=== PATIENT | female | born 1995 | race Caucasian/White ===

== ENCOUNTER → 2020-05-28 | Outpatient (CLI) | payer OTHER ==
[2020-05-28 15:59] LABS: BASO % 0.3 % (0.0-1.0); EOS # 0.1 10^3/uL (0.0-0.5); EOS % 1.6 % (0.0-3.0); HEMATOCRIT 36.3 % (36.0-47.0); HEMOGLOBIN 11.3 g/dl (12.0-15.5); LYMPH # 1.9 10^3/uL (1.5-5.0); LYMPH % 23.4 % (24.0-44.0); MEAN CORPUSCULAR HEMOGLOBIN 25.7 pg (27.0-33.0); MEAN CORPUSCULAR HGB CONC 31.1 g/dl (32.0-36.5); MEAN CORPUSCULAR VOLUME 82.5 fl (80.0-96.0); MONO # 0.3 10^3/uL (0.0-0.8); MONO % 3.4 % (0.0-5.0); NEUTROPHILS # 5.6 10^3/uL (1.5-8.5); NEUTROPHILS % 70.9 % (36.0-66.0); PLATELET COUNT, AUTOMATED 265 10^3/uL (150-450); WHITE BLOOD COUNT 7.9 10^3/uL (4.0-10.0)
[2020-05-28 17:25] LABS: GLUCOSE CHALLENGE TEST 1 HOUR 161 MG/DL (LESS THAN 140)
[2020-05-28 18:32] LABS: HEPATITIS C VIRUS ABY INDEX 0.2 INDEX (<0.8); HIV 1&2 SCREEN CENTAUR NEGATIVE (NEGATIVE)
[2020-05-28 20:00] LABS: CHLAMYDIA DNA AMPLIFICATION NEGATIVE (NEGATIVE); GC DNA AMPLIFICATION NEGATIVE (NEGATIVE)
== END ==
LOC: M PLALAB 12:19
PROVIDERS: ATTEND Advanced Practice Midwife
DX: Z34.80 Encounter for supervision of other normal pregnancy, unspecified trimester (principal); Z3A.00 Weeks of gestation of pregnancy not specified

== ENCOUNTER → 2020-05-29 | Outpatient (CLI) | payer OTHER ==
--- NOTE | 2020-06-22 10:06 | REP ---
COMPLETE OBSTETRIC ULTRASOUND: 05/29/20 CLINICAL: Anatomical assessment TECHNIQUE: Transabdominal obstetrical ultrasound with color Doppler evaluation. FINDINGS: Ultrasound examination demonstrates single live intrauterine in variable presentation. motion was identified by technologist. The placenta is noted posterior/left lateral and grade 1 without previa or abruption. Cervix measures 3.6cm in length and appears closed. Amniotic fluid volume is normal. HEART RATE: 165bpm BPD: 66mm; 26 weeks 6 days HC: 239mm; 26 weeks 0 days AC: 228mm; 27 weeks 2 days FL: 48mm; 26 weeks 2 days HL: 45mm; 26 weeks 4 days Estimated age by current measurements 26 weeks 5 days. Estimated weight 970g (31st percentile). Anatomical assessment demonstrates normal cisterna magna, cavum, thalamus, stomach, kidneys/bladder, three vessel cord/cord insertion, facial features and extremities. Limited evaluation of the heart and cardiac outflow tracts noted. IMPRESSION: 1. Single live intrauterine in variable presentation demonstrating appropriate interval growth and estimated weight. 2. Anatomical assessment demonstrates limited heart and cardiac ventricle outflow tract which may warrant follow-up. Remainder of the anatomical assessment is complete and normal. MTDD
== END ==
LOC: M WHC 14:56 → EDUNIT# 15:00
PROVIDERS: ATTEND Obstetrics & Gynecology
DX: Z34.82 Encounter for supervision of other normal pregnancy, second trimester (principal)

== ENCOUNTER → 2020-07-07 | Outpatient (REF) | payer OTHER | LOC: M SFHCWAGY 17:08 | PROVIDERS: ATTEND Advanced Practice Midwife | DX: Z34.83 Encounter for supervision of other normal pregnancy, third trimester (principal); Z3A.00 Weeks of gestation of pregnancy not specified ==

== ENCOUNTER → 2020-07-23 | Outpatient (REF) | payer OTHER ==
[~2020-07-23] MED LIST: PRENTAB9 PO
== END ==
LOC: M SFHCWAGY 13:08
PROVIDERS: ATTEND Advanced Practice Midwife
DX: N39.46 Mixed incontinence (principal)
CPT/HCPCS: 87086; 87210; G0463

== ENCOUNTER → 2020-07-30 | Outpatient (CLI) | payer OTHER ==
--- NOTE | 2020-07-30 15:44 | REP ---
INDICATION: F/U ANATOMY. COMPARISON: 05/29/2020. TECHNIQUE: Real-time sonographic evaluation of the gravid uterus performed. FINDINGS: Estimated gestational age is35 weeks 5 days, EDC 08/29/2020. Today's measurements indicate appropriate growth. Presentation: Cephalic Placenta posterior, grade 2, without evidence of placenta previa. heart rate is recorded at 147 beats per minute. Amniotic fluid is subjectively normal. OTTO 17.4 (normal 7.8-24.9 ). Closed cervical length is measured at 3.1 cm. Biometry chart: BPD: 87 mm, 35 weeks 1 days, 41st percentile. HC: 319 mm, 35 weeks 6 days, 52nd percentile AC: 310 mm, 35 weeks 0 days, 39th percentile Femur length: 68 mm, 34 weeks 5 days, 36th percentile HC to AC ratio: 1.03, normal range 0.93-1.12. Estimated weight: 2572g, 31st percentile. There is an echogenic focus in the left ventricle of the heart likely related to chordae tendineae. The ventricular outflow tracts are visualized and are grossly unremarkable. IMPRESSION: Viable single intrauterine gestation as above. <Electronically signed by Migue Fuentes > 07/30/20 [id number]
== END ==
LOC: M WHC 14:17
PROVIDERS: ATTEND Advanced Practice Midwife
DX: O99.891 Other specified diseases and conditions complicating pregnancy (principal); Z3A.35 35 weeks gestation of pregnancy

== ENCOUNTER → 2020-08-10 | Outpatient (CLI) | payer OTHER ==
--- NOTE | 2020-08-11 04:16 | REP ---
INDICATION: IMPAIRED GLUCOSE,GROWTH,EFW,OTTO COMPARISON: 07/30/2020 TECHNIQUE: Transabdominal obstetrical ultrasound with color Doppler evaluation. FINDINGS: Examination demonstrates a single live intrauterine in cephalic presentation. motion is identified by technologist. Placenta is noted posterior and grade 2 without evidence for placenta previa or abruption. Amniotic fluid volume is normal. Cervix measures 3.7 cm in length and appears closed.. Gestational age by LMP 37 weeks 2 days with FEROZ 08/29/2020. Gestational age by current measurements 36 weeks 2 days with FEROZ 09/05/2020. FHR equals 135 beats per minute. BPD: 8.9 cm 36 weeks 1 day HC: 32.7 cm 37 weeks 1 day AC: 34.9 cm 38 weeks 6 days FL: 6.9 cm 35 weeks 1 day HL: 5.9 cm 34 weeks 1 day HC/AC: 0.94 Estimated weight 3221 grams (63rdpercentile). OTTO: 19.5 cm (7.4-24.3) IMPRESSION: Single live advanced gestation in cephalic presentation demonstrating appropriate estimated weight. <Electronically signed by Gómez Walker > 08/11/20 [id number]
== END ==
LOC: M WHC 12:21
PROVIDERS: ATTEND Advanced Practice Midwife
DX: O99.810 Abnormal glucose complicating pregnancy (principal); Z3A.36 36 weeks gestation of pregnancy
CPT/HCPCS: 76815; 87081; G0463

== ENCOUNTER → 2020-08-10 | Outpatient (REF) | payer OTHER | LOC: M SFHCWAGY 13:16 | PROVIDERS: ATTEND Advanced Practice Midwife | DX: O99.810 Abnormal glucose complicating pregnancy (principal) ==

== ENCOUNTER 2020-08-11 17:56 | Outpatient (CLI) | payer OTHER ==
[~2020-08-11] VITALS: Ht 165.1 cm; Wt 88.9 kg
[2020-08-11 18:11] VITALS: BP 121/62
[2020-08-11] MEDS ORDERED: PRENTAB9 PO (18:19)
[2020-08-11 19:18] VITALS: BP 114/74
--- NOTE | 2020-08-11 19:29 | IPNPDOC ---
Obstetrical Progress Note Date of Service Aug 11, 2020 Subjective 25 yo at 37+3 weeks EGA. Presents for a labor check. Reports frequent, painful uterine contractions. No loss of fluid or vaginal bleeding. Reports regular, frequent movement. ROS: No WEST, visual changes, RUQ pain, sob, cp, n/v/f/c. Cervix checked earlier today in the office and she was 2cm dilated. 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 EFM: Cat I / Reactive [place]: contraction pattern not detected; palpated as mild. A/P: 25 yo at 37+3 weeks EGA. Latent labor; no evidence of active labor or ROM. Reassuring maternal and status. -Routine third trimester precautions given. -Follow up in office as scheduled. Alex Banda DO FACOG. Objective Vital Signs Date Time Temp Pulse Resp B/P (MAP) Pulse Ox O2 Delivery O2 Flow Rate FiO2 08/11/20 18:11 98.2 107 16 121/62 (81) 98 Room Air MIREYA BANDA DO Aug 11, 2020 19:28
== END 2020-08-11 19:30 | disposition home or self-care (01) ==
LOC: M LDO 17:56
PROVIDERS: ATTEND Obstetrics & Gynecology
DX: O47.1 False labor at or after 37 completed weeks of gestation (principal); Z3A.37 37 weeks gestation of pregnancy
CPT/HCPCS: 59025; G0378; G0463

== ENCOUNTER 2020-08-26 14:03 | Inpatient (IN) | payer OTHER ==
[2020-08-26] VITALS (35 sets, daily range): BP systolic 96–147; BP diastolic 50–82
[~2020-08-26] VITALS: Ht 165.1 cm; Wt 87.7 kg
[2020-08-26] MEDS ORDERED: OXYTOCIN DRIP 30 UNITS in IV 1 EA IV SCH (14:30)
[2020-08-26 15:03] LABS: HEMATOCRIT 33.2 % (36.0-47.0); HEMOGLOBIN 10.3 g/dl (12.0-15.5); MEAN CORPUSCULAR HEMOGLOBIN 24.3 pg (27.0-33.0); MEAN CORPUSCULAR VOLUME 78.3 fl (80.0-96.0); PLATELET COUNT, AUTOMATED 267 10^3/uL (150-450); RED BLOOD COUNT 4.24 10^6/uL (4.00-5.40); WHITE BLOOD COUNT 9.1 10^3/uL (4.0-10.0)
--- NOTE | 2020-08-26 15:06 | HPE ---
HISTORY AND PHYSICAL DATE OF ADMISSION: 08/26/2020 HISTORY OF PRESENT ILLNESS: Keely is a 25-year-old 3, para 2-0-0-2. She is 39 4/7 weeks gestation with an EDC of 08/29/2020, based on first trimester ultrasound. She presents for induction of labor today due to late term diagnosis of gestational diabetes that did not have any management or control, as she was diagnosed at 38+ weeks. She does deny vaginal bleeding or leakage of fluid. The fetus has been active. She does report some occasional contractions. Her care was initiated at [facility] in the first trimester with a transfer of care to [facility] at 26 weeks gestation. Her course complicated by a history of obesity and late term diagnosis of gestational diabetes. OBSTETRIC HISTORY: July 2015 at 39 weeks induction of labor with spontaneous vaginal delivery 7 pound 10 ounce male. April 2018 induction of labor with spontaneous vaginal delivery at 37 weeks 7 pound 11 ounce female. OBSTETRIC LABS: A positive. Antibody screen negative. Syphilis negative. Gonorrhea and chlamydia negative. Hepatitis B surface antigen negative. Hepatitis C antibody nonreactive. HIV nonreactive. Rubella immune. Gestational diabetic screening elevated at 161. She never performed a three-hour glucose tolerance test as ordered. Urine culture and sensitivity no growth. GBS negative. PAST MEDICAL HISTORY: Obesity. PAST SURGICAL HISTORY: None. FAMILY HISTORY: Diabetes and heart disease. 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 She is a nonsmoker. She denied alcohol and drug use. She denies any history of sexually transmitted infections. She denies a history of abuse physical, sexual, and emotional. ALLERGIES: SULFA. CURRENT MEDICATIONS: vitamin. PHYSICAL EXAMINATION: VITAL SIGNS: Temperature 97.6, pulse 86, respirations 18, BP 124/58 upon arrival. heart rate is 140 with moderate variability, positive accelerations, and no decelerations. There is no pattern of regular contractions. GENERAL: She is alert and oriented x3, in no apparent distress, smiling and talkative. ABDOMEN: Gravid. Cephalic presentation. Estimated weight 8 pounds. PELVIC: Sterile vaginal exam 2-3 cm dilated, 50% effaced, -3 station, posterior, and soft. ASSESSMENT: Intrauterine at 39 4/7 weeks. heart rate category 1. Uncontrolled gestational diabetes. PLAN: Admit the patient to labor and delivery. Routine labs. Out of bed ad jyoti. Clear liquid diet at this time. I plan to start IV Pitocin for labor induction. The patient does desire an epidural when she is uncomfortable. I will likely consider assisted-rupture of membranes to augment her labor. I did review risks, benefits, and alternatives to induction of labor. All of her questions and her 's questions have been answered. She has been verbally consented for emergency surgery and blood products if they are necessary. I do anticipate labor and a spontaneous vaginal delivery.
[2020-08-26] MEDS: LR 1,000 ML IV SCH ×2 (15:37→21:35)
[2020-08-26] MEDS ORDERED: FENTANYL 2MCG/ML ROPIVACAINE 0.2% IN 0.9% NACL 100ML IVBAG As Ordered ONE (20:37)
[2020-08-26] MEDS ORDERED: LACTATED RINGER'S 1000 ML IV PRN (22:30)
[2020-08-26] MEDS ORDERED: REFRIGERATOR IV KEYS XX PRN (22:30)
[2020-08-26] MEDS ORDERED: EPIDURAL COMMENT XX SCH (22:30)
[2020-08-26] MEDS ORDERED: EPIDURAL/PCA KEYS XX PRN (22:30)
[2020-08-26] MEDS ORDERED: ePHEDrine SULFATE 25 MG/5 ML(5MG/ML) SYRINGE IV PRN (22:30)
[2020-08-26] MEDS ORDERED: diphenhydrAMINE 50MG/ML VIAL (J1200) IV PRN (22:30)
[2020-08-26] MEDS ORDERED: ONDANSETRON 4MG/2ML VIAL IV PRN (22:30)
[2020-08-26] MEDS ORDERED: FENTANYL/ROPIVACAINE/NACL BAG 100 ML EPIDURAL SCH (22:30)
[2020-08-26] MEDS ORDERED: NALOXONE INJ 0.4MG/1ML VIAL (J2310 PER 1MG) IV PRN (22:30)
[2020-08-27 00:23] VITALS: BP 99/55
[2020-08-27] MEDS ORDERED: OXYTOCIN DRIP 30 UNITS in IV 1 EA IV SCH (00:28)
[2020-08-27] MEDS ORDERED: ACETAMINOPHEN TAB 650MG DOSE (2X325MG) PO PRN (00:30)
[2020-08-27] MEDS ORDERED: MEASLES,MUMPS,RUBELLA VACCINE INJ (MMR-II) (90707) SC SCH (00:30)
[2020-08-27] MEDS ORDERED: RHOGAM 300 MCG (1500 IU) INJ (J2790) IM SCH (00:30)
[2020-08-27] MEDS ORDERED: ACETAMINOPHEN 500 MG TAB PO PRN (00:30)
[2020-08-27] MEDS ORDERED: METHYLERGONOVINE MALEATE 0.2 MG TAB PO PRN (00:30)
[2020-08-27] MEDS ORDERED: IBUPROFEN 600MG TAB PO PRN (00:30)
[2020-08-27] MEDS ORDERED: BENZOCAINE 20% HEMORRHOIDAL OINTMENT 28GM TUBE TOP PRN (00:30)
[2020-08-27] MEDS ORDERED: DOCUSATE SODIUM 100MG CAPSULE PO PRN (00:30)
[2020-08-27 00:38] VITALS: BP 105/56
[2020-08-27 00:52] VITALS: BP 105/59
[2020-08-27 02:27] VITALS: BP 126/66
[2020-08-27 05:47] VITALS: BP 95/53
--- NOTE | 2020-08-27 07:54 | DN ---
DELIVERY NOTE DATE OF DELIVERY: 08/27/2020 TIME OF : 0002 GENDER: Female APGARS: 9 and 9 DESCRIPTION OF DELIVERY: Keely is a 25-year-old 3, para 3-0-0-3 now, who was admitted to labor and delivery for induction of labor due to gestational diabetes. IV Pitocin was started and labor did ensue. She used an epidural for her labor coping. She reached complete dilation at 0000, she pushed to a normal spontaneous vaginal delivery of a live female infant in OA position with restitution to LOT position at 0002. Shoulders delivered with gentle downward traction and the corpus immediately followed. The 's mouth and nares were bulb suctioned and she was placed on the maternal abdomen crying and active. The cord was clamped x2 once pulsations ceased and cut by the father of the baby under my direction. Spontaneous expulsion of an intact placenta with three-vessel cord by Mock mechanism was at 0006. Uterine hemostasis achieved with IV Pitocin rapid infusion and uterine fundal massage. EBL 200 mL. Perineum and vagina inspected and had a small perineal laceration that was repaired with 3-0 Vicryl Rapide in the usual fashion. [place] female weight 3420 grams (7 pounds 9 ounces). Apgars 9 and 9. Mom is going to bottle feed her daughter and the family have named her Haven. At the close of delivery lap counts, needle counts, and instrument counts were correct and verified.
[2020-08-27] MEDS: PRENATAL VITAMINS CHEWABLE TABLET PO SCH (08:04)
[2020-08-27] MEDS: IBUPROFEN 800 MG TAB PO PRN (17:04)
[2020-08-27 17:46] VITALS: BP 111/57
[2020-08-28] MEDS: IBUPROFEN 800 MG TAB PO PRN ×2 (00:52→12:18)
[2020-08-28 06:01] VITALS: BP 122/55
[2020-08-28] MEDS: PRENATAL VITAMINS CHEWABLE TABLET PO SCH (07:41)
[2020-08-28 18:05] VITALS: BP 131/63
[2020-08-29 06:00] VITALS: BP 119/64
[2020-08-29] MEDS: PRENATAL VITAMINS CHEWABLE TABLET PO SCH (08:37)
== END 2020-08-29 12:30 | disposition home or self-care (01) | DRG 807 ==
LOC: M LDI 14:03 → M OBS 08-27 07:25
PROVIDERS: ADMIT Advanced Practice Midwife; ATTEND Advanced Practice Midwife
PROC: 3E033VJ Introduction of Other Hormone into Peripheral Vein, Percutaneous Approach (ICD-10-PCS; 2020-08-26)
PROC: 10E0XZZ Delivery of Products of Conception, External Approach (ICD-10-PCS; principal; 2020-08-27)
PROC: 0HQ9XZZ Repair Perineum Skin, External Approach (ICD-10-PCS; 2020-08-27)
DX: O24.420 Gestational diabetes mellitus in childbirth, diet controlled (principal); Z37.0 Single live birth; O99.214 Obesity complicating childbirth; E66.9 Obesity, unspecified; Z3A.39 39 weeks gestation of pregnancy; O70.0 First degree perineal laceration during delivery

== ENCOUNTER 2021-05-09 19:47 | Emergency (ER) | payer OTHER ==
[~2021-05-09] VITALS: Ht 165.1 cm; Wt 88.6 kg
[2021-05-09 23:49] LABS: BASO # 0.1 10^3/uL (0.0-0.2); BASO % 0.5 % (0.0-1.0); EOS # 0.1 10^3/uL (0.0-0.5); EOS % 1.4 % (0.0-3.0); HEMATOCRIT 39.8 % (36.0-47.0); HEMOGLOBIN 12.5 g/dl (12.0-15.5); LYMPH # 2.7 10^3/uL (1.5-5.0); LYMPH % 26.5 % (24.0-44.0); MEAN CORPUSCULAR HEMOGLOBIN 25.6 pg (27.0-33.0); MEAN CORPUSCULAR HGB CONC 31.4 g/dl (32.0-36.5); MEAN CORPUSCULAR VOLUME 81.6 fl (80.0-96.0); MONO # 0.5 10^3/uL (0.0-0.8); MONO % 4.5 % (2.0-8.0); NEUTROPHILS # 6.7 10^3/uL (1.5-8.5); NEUTROPHILS % 66.6 % (36.0-66.0); PLATELET COUNT, AUTOMATED 314 10^3/uL (150-450); RED BLOOD COUNT 4.88 10^6/uL (4.00-5.40)
[2021-05-10 00:01] LABS: INR 0.98; PARTIAL THROMBOPLASTIN TIME 27.2 SECONDS (25.9-37.0); PROTHROMBIN TIME 13.4 SECONDS (12.7-14.5)
[2021-05-10 00:04] LABS: D-DIMER QUANT 914.96 ng/ml (<500)
[2021-05-10 00:09] LABS: ERYTHROCYTE SEDIMENTATION RATE 6 mm/hr (0-20)
[2021-05-10 00:26] LABS: ALBUMIN 3.6 GM/DL (3.2-5.2); ALT/SGPT 55 U/L (12-78); BILIRUBIN,DIRECT < 0.1 MG/DL (0.0-0.2); BILIRUBIN,TOTAL 0.4 MG/DL (0.2-1.0); BLOOD UREA NITROGEN 11 MG/DL (7-18); C REACTIVE PROTEIN QUANTITATIV 0.56 MG/DL (0.00-0.30); CALCIUM LEVEL 8.9 MG/DL (8.5-10.1); CARBON DIOXIDE LEVEL 26 MEQ/L (21-32); CHLORIDE LEVEL 108 MEQ/L (98-107); CK-MB VALUE MASS < 1.0 NG/ML (<3.6); CPK CREATINE PHOSPHOKINASE 131 U/L (26-192); CREATININE FOR GFR 0.55 MG/DL (0.55-1.30); FREE T4 0.91 NG/DL (0.76-1.46); GLOMERULAR FILTRATION RATE > 60.0 (>60); GLUCOSE, FASTING 109 MG/DL (70-100); LIPASE 85 U/L (73-393); MAGNESIUM LEVEL 2.1 MG/DL (1.8-2.4); MB/CK RELATIVE INDEX 0.76 (< OR =4); POTASSIUM SERUM 4.5 MEQ/L (3.5-5.1); SODIUM LEVEL 139 MEQ/L (136-145); TOTAL PROTEIN 7.3 GM/DL (6.4-8.2); TROPONIN I < 0.02 NG/ML (< 0.10)
[2021-05-10] MEDS ORDERED: ISOVUE-370 76% 100ML VIAL As Ordered ONE (00:28)
--- NOTE | 2021-05-10 00:52 | REPVR ---
PROCEDURE INFORMATION: Exam: CT Head Without Contrast Exam date and time: 05/10/2021 12:34 AM Age: 26 years old Clinical indication: Syncope and collapse TECHNIQUE: Imaging protocol: Computed tomography of the head without contrast. Radiation optimization: All CT scans at this facility use at least one of these dose optimization techniques: automated exposure control; mA and/or kV adjustment per patient size (includes targeted exams where dose is matched to clinical indication); or iterative reconstruction. COMPARISON: No relevant prior studies available. FINDINGS: Limitations: Examination is limited by motion artifact. Brain: Normal. No hemorrhage. Unremarkable white matter. No mass effect. Cortical turner-white matter differentiation is preserved. Cerebral ventricles: No ventriculomegaly. Paranasal sinuses: Visualized sinuses are unremarkable. No fluid levels. Mastoid air cells: Visualized mastoid air cells are well aerated. Bones/joints: Unremarkable. No acute fracture. Soft tissues: Unremarkable. IMPRESSION: No acute findings. Electronically signed by: Winsome Cunha On 05/10/2021 00:51:39 AM
--- NOTE | 2021-05-10 01:14 | REPVR ---
PROCEDURE INFORMATION: Exam: CTA Chest With Contrast Exam date and time: 05/10/2021 12:34 AM Age: 26 years old Clinical indication: Shortness of breath; Syncope/sob/cp TECHNIQUE: Imaging protocol: Computed tomographic angiography of the chest with contrast. 3D rendering (Not supervised by radiologist): MIP and/or 3D reconstructed images were created by the technologist. Radiation optimization: All CT scans at this facility use at least one of these dose optimization techniques: automated exposure control; mA and/or kV adjustment per patient size (includes targeted exams where dose is matched to clinical indication); or iterative reconstruction. Contrast material: ISOVUE 370; Contrast volume: 75 ml; Contrast route: INTRAVENOUS (IV); COMPARISON: No relevant prior studies available. FINDINGS: Limitations: Examination is limited by motion artifact. Pulmonary arteries: Normal. No pulmonary emboli. Aorta: Unremarkable. No aortic aneurysm. No aortic dissection. Bronchial tree: Visualized bronchial tree is unremarkable. Lungs: Unremarkable. No consolidation. No masses. Pleural spaces: Unremarkable. No pneumothorax. No pleural effusion. Heart: Unremarkable. No cardiomegaly. No pericardial effusion. Lymph nodes: Unremarkable. No enlarged lymph nodes. Liver: Fatty infiltration of the liver. Bones/joints: Unremarkable. No acute fracture. Soft tissues: Unremarkable. IMPRESSION: 1. Limited by motion. 2. Negative for pulmonary emboli. 3. Fatty infiltration of the liver. Electronically signed by: Winsome Cunha On 05/10/2021 01:14:08 AM
[2021-05-10] MEDS ORDERED: NS 1,000 ML IV ONE (02:15)
[2021-05-10 02:59] LABS: AMPHETAMINES LEVEL URINE NEGATIVE (NEGATIVE); BARBITURATES URINE NEGATIVE (NEGATIVE); BENZODIAZEPINES URINE NEGATIVE (NEGATIVE); CANNABINOIDS URINE NEGATIVE (NEGATIVE); COCAINE METABOLITE URINE NEGATIVE (NEGATIVE); METHADONE URINE NEGATIVE (NEGATIVE); OPIATES URINE NEGATIVE (NEGATIVE); PHENCYCLIDINE URINE NEGATIVE (NEGATIVE)
[2021-05-10 04:34] VITALS: BP 129/79
--- NOTE | 2021-05-10 05:50 | ECGEPIP ---
[facility] - ED Test Date: 2021-05-09 Pat Name: RENE SANCHEZ Department: Room: - Gender: Female Cupola Tender: VENECIA : 1995 Requested By: YAIR ASHFORD PA-C Order Number: [id number] Reading MD: Vasu Teresa Measurements Intervals [place] Rate: 73 P: 35 VT: 168 QRS: 72 QRSD: 80 T: 45 QT: 402 QTc: 442 Interpretive Statements Normal sinus rhythm with sinus arrhythmia NONSPECIFIC T WAVE ABNORMALITY(S) NO PRIORS FOR COMPARISON Electronically Signed on 05-10-2021 5:50:00 EDT by Vasu Teresa
== END 2021-05-10 05:16 | disposition home or self-care (01) ==
LOC: M ED 19:47
DX: I95.1 Orthostatic hypotension (principal); R00.2 Palpitations; R11.0 Nausea; R19.7 Diarrhea, unspecified; K76.0 Fatty (change of) liver, not elsewhere classified; Z88.2 Allergy status to sulfonamides
CPT/HCPCS: 70450; 71275; 80048; 80076; 80307; 81001; 82550; 82553; 83605; 83690; 83735; 84439; 84443; 84484; 84702; 85025; 85379; 85610; 85652; 85730; 86140; 93005; 96360; 96361; 99284; Q9967

== ENCOUNTER → 2021-06-02 | Outpatient (CLI) | payer OTHER | LOC: M PLALAB 10:03 | PROVIDERS: ATTEND Student in an Organized Health Care Education/Training Program | DX: R73.03 Prediabetes (principal) | CPT/HCPCS: 36415; 83036; G0463 ==

== ENCOUNTER → 2022-03-07 | Outpatient (REF) | payer OTHER | LOC: M LAB REF 15:42 | PROVIDERS: ATTEND Physician Assistant | DX: J02.9 Acute pharyngitis, unspecified (principal) ==

== ENCOUNTER → 2022-05-27 | Outpatient (REF) | payer OTHER ==
[~2022-05-27] MED LIST changes: +HYDR-3363 PO
[2022-05-27 15:33] LABS: BASO # 0.1 10^3/uL (0.0-0.2); BASO % 0.9 % (0.0-1.0); EOS # 0.2 10^3/uL (0.0-0.5); EOS % 2.9 % (0.0-3.0); LYMPH # 2.4 10^3/uL (1.5-5.0); MEAN CORPUSCULAR HEMOGLOBIN 26.5 pg (27.0-33.0); MEAN CORPUSCULAR VOLUME 85.7 fl (80.0-96.0); MONO # 0.4 10^3/uL (0.0-0.8); MONO % 6.7 % (2.0-8.0); NEUTROPHILS # 3.4 10^3/uL (1.5-8.5); NEUTROPHILS % 52.3 % (36.0-66.0); PLATELET COUNT, AUTOMATED 229 10^3/uL (150-450); WHITE BLOOD COUNT 6.5 10^3/uL (4.0-10.0)
[2022-05-27 16:02] LABS: HEMOGLOBIN A1c 5.9 %
[2022-05-27 16:03] LABS: ALBUMIN 3.7 GM/DL (3.2-5.2); ALT/SGPT 54 U/L (12-78); BILIRUBIN,TOTAL 0.2 MG/DL (0.2-1.0); BLOOD UREA NITROGEN 12 MG/DL (7-18); CARBON DIOXIDE LEVEL 22 MEQ/L (21-32); CHLORIDE LEVEL 107 MEQ/L (98-107); CREATININE FOR GFR 0.62 MG/DL (0.55-1.30); GLOMERULAR FILTRATION RATE > 60.0 (>60); GLUCOSE, FASTING 89 MG/DL (70-100); POTASSIUM SERUM 4.2 MEQ/L (3.5-5.1); SODIUM LEVEL 137 MEQ/L (136-145)
== END ==
LOC: M LAB REF 15:07
PROVIDERS: ATTEND Physician Assistant
DX: R42 Dizziness and giddiness (principal)

== ENCOUNTER 2022-06-01 09:19 | Emergency (ER) | payer OTHER ==
[~2022-06-01] VITALS: Ht 165.1 cm; Wt 89.7 kg
[~2022-06-01 09:19] MED LIST changes: -HYDR-3363 PO
[2022-06-01 13:15] LABS: BASO % 0.5 % (0.0-1.0); EOS # 0.1 10^3/uL (0.0-0.5); EOS % 1.2 % (0.0-3.0); HEMATOCRIT 40.4 % (36.0-47.0); HEMOGLOBIN 12.7 g/dl (12.0-15.5); LYMPH # 2.4 10^3/uL (1.5-5.0); LYMPH % 31.9 % (24.0-44.0); MEAN CORPUSCULAR HEMOGLOBIN 26.1 pg (27.0-33.0); MEAN CORPUSCULAR HGB CONC 31.4 g/dl (32.0-36.5); MONO # 0.3 10^3/uL (0.0-0.8); MONO % 4.2 % (2.0-8.0); NEUTROPHILS # 4.5 10^3/uL (1.5-8.5); NEUTROPHILS % 61.2 % (36.0-66.0); PLATELET COUNT, AUTOMATED 299 10^3/uL (150-450); RED BLOOD COUNT 4.87 10^6/uL (4.00-5.40); WHITE BLOOD COUNT 7.4 10^3/uL (4.0-10.0)
[2022-06-01 13:48] LABS: CK-MB VALUE MASS < 1.0 NG/ML (<3.6); CPK CREATINE PHOSPHOKINASE 93 U/L (26-192); MB/CK RELATIVE INDEX 1.08 (< OR =4)
[2022-06-01 13:50] LABS: HCG, SERUM QUALITATIVE NEGATIVE (NEGATIVE)
[2022-06-01 14:09] LABS: BLOOD UREA NITROGEN 11 MG/DL (7-18); CALCIUM LEVEL 9.3 MG/DL (8.5-10.1); CARBON DIOXIDE LEVEL 25 MEQ/L (21-32); CHLORIDE LEVEL 108 MEQ/L (98-107); CREATININE FOR GFR 0.59 MG/DL (0.55-1.30); FREE T4 1.16 NG/DL (0.76-1.46); GLOMERULAR FILTRATION RATE > 60.0 (>60); GLUCOSE, FASTING 94 MG/DL (70-100); SODIUM LEVEL 138 MEQ/L (136-145)
[2022-06-01] MEDS ORDERED: ISOVUE-370 76% 100ML VIAL As Ordered ONE (14:18)
[2022-06-01] MEDS ORDERED: HYDR-3363 PO (14:45)
[2022-06-01 15:08] VITALS: BP 123/72
== END 2022-06-01 15:11 | disposition home or self-care (01) ==
LOC: M ED 09:19
DX: R07.9 Chest pain, unspecified (principal); R79.1 Abnormal coagulation profile; F41.9 Anxiety disorder, unspecified; E11.9 Type 2 diabetes mellitus without complications; Z88.2 Allergy status to sulfonamides; Z79.811 Long term (current) use of aromatase inhibitors
CPT/HCPCS: 36415; 71275; 80048; 82550; 82553; 84439; 84443; 84484; 84703; 85025; 85379; 93005; 99284; Q9967